=== PATIENT | male | born 1950 | race Caucasian/White ===

== ENCOUNTER 2017-05-20 04:49 | Inpatient (IN) | payer OTHER ==
[~2017-05-20] VITALS: Ht 172.7 cm; Wt 79.4 kg
--- NOTE | ~2017-05-20 | CT4 ---
[facility] A Service of [facility] RADIOLOGY TEXT RESULTS PATIENT: INDIA LUNDBERG LOCATION: [facility] : 54 UNIT #: [id number] AGE: [address]: Miguel A Mccord DO SEX: M ORDER DR: [id number] [facility] [address] [place], [place] [address] [id number] E MR#: [id number] Acc #: [id number] NAME: INDIA LUNDBERG : 1950 SEX: M STUDY DATE/TIME: 05/20/2017 7:53 UNIT: [facility] ROOM: STUDY DESCRIPTION: CT Abd and Pelv Wo Cont Attending Physician: Miguel A Mccord D.O. Ordering Physician: Jatin Fallon M.D. Primary Care Physician: Terrell Collier M.D. MEDICAL IMAGING REPORT This report is preliminary unless electronic signature is present EXAM CT of the abdomen and pelvis without contrast HISTORY Right side abdominal pain for 2 days with nausea and vomiting. COMPARISON None TECHNIQUE Axial 5.0 mm images were obtained through the abdomen and pelvis with a small amount of oral contrast only. This CT exam was performed with one or more of the following radiation dose reduction techniques: automatic exposure control, adjustment of mA and/or kV according to patient size, and iterative reconstruction. FINDINGS The lung bases are clear. The liver, spleen, pancreas, adrenal glands and kidneys are normal. The gallbladder is distended measuring up to 14.0 cm in length and it contains up to 10 small stones measuring 5.0 to 7.0 mm in diameter. They are calcified. No common bile duct stones are visible. There is no biliary distension. The aorta is normal in size and there is no adenopathy. The bowel, including the appendix, appears normal. The bladder and prostate gland are normal. The bones are unremarkable. IMPRESSION 1. The gallbladder is significantly distended and contains multiple small calcified stones. There is no wall thickening or biliary distension. 2. Normal appendix. 3. Otherwise normal study. [facility] A Service [facility] RADIOLOGY TEXT RESULTS PATIENT: INDIA LUNDBERG LOCATION: [facility] : 52 UNIT #: [id number] AGE: [address]: Miguel A Mccord DO SEX: M ORDER DR: Dictated by... Walker Burnett M.D. THIS IS AN ELECTRONICALLY VERIFIED REPORT Walker Burnett M.D. at 05/20/2017 2:51 PM Destiny TD: 05/20/2017 12:51 JOB #: [id number] MEDICAL IMAGING REPORT Page 1 of 1 COPY
--- NOTE | ~2017-05-20 | CR84 ---
[facility] A Service of [facility] RADIOLOGY TEXT RESULTS PATIENT: INDIA LUNDBERG LOCATION: [facility] - : 54 UNIT #: [id number] AGE: [address]: Danny Wilkins MD SEX: M ORDER DR: [id number] [facility] [address] [place], [place] [address] [id number] I MR#: [id number] Acc #: [id number] NAME: INDIA LUNDBERG. : 1950 SEX: M STUDY DATE/TIME: 05/21/2017 15:25 UNIT: [address] ROOM: [facility] STUDY DESCRIPTION: CR ERCP Biliary and Pancr SI Attending Physician: Danny Wilkins M.D. Ordering Physician: Emigdio Lara M.D. Primary Care Physician: Terrell Collier M.D. MEDICAL IMAGING REPORT This report is preliminary unless electronic signature is present EXAM ERCP with fluoroscopy 05/21/2017 HISTORY Common bile duct stones. Elevated liver function tests. COMPARISON CT abdomen and pelvis without contrast 05/20/2017. FINDINGS Four spot fluoroscopic images were obtained during ERCP performed by Dr. Lara. Fluoroscopy time 1 minute 39 seconds is documented by the technologist. Contrast was injected into the common bile duct, demonstrating normal caliber of the opacified portions of the intrahepatic and extrahepatic bile duct without stricture or suspicious intraluminal filling defect. According to the brief endoscopist notes, sphincterotomy was performed. Balloon sweep was performed without stone extraction. Pancreatic duct was not sought. Please refer to the endoscopists report for additional findings and recommendations. Dictated by... Alexandra Ortez M.D. THIS IS AN ELECTRONICALLY VERIFIED REPORT Alexandra Ortez M.D. at 05/22/2017 9:49 PM ARLEY/benedicto TD: 05/22/2017 06:03 JOB #: [id number] [facility] A Service [facility] RADIOLOGY TEXT RESULTS PATIENT: INDIA LUNDBERG LOCATION: [facility] 326-01 : 54 UNIT #: [id number] AGE: [address]: Danny Wilkins MD SEX: M ORDER DR: MEDICAL IMAGING REPORT Page 1 of 1 COPY
--- NOTE | ~2017-05-20 | OR ---
Unit #: [id number] #: [id number] Patient: INDIA LUNDBERG [id number] [address] [place], [place] [address] [id number] I MR#: [id number] NAME: INDIA LUNDBERG. ROOM: [facility] Date of Procedure: 05/21/2017 Admission Date: 05/20/2017 Surgeon: Emigdio Lara M.D. : 1950 Attending Physician: Danny Wilkins M.D. Primary Care Physician: Terrell Collier M.D. OPERATIVE REPORT PRIMARY CARE PHYSICIAN Terrell Proctor M.D. PREOPERATIVE DIAGNOSES The patient has presented with bilirubin of 7 on a background of chronic hepatitis C. He has been treated in a sustained viral response and "cured." He presents with right upper quadrant abdominal pain with evidence of cholelithiasis and cholecystitis. The purpose of the endoscopic retrograde cholangiopancreatography is to look for and treat any common bile ductal stones. The patient's imaging studies do not suggest any biliary ductal dilation, but he does have hyperbilirubinemia with bilirubin of 7 and elevated transaminases. PROCEDURE PERFORMED Endoscopic retrograde cholangiopancreatography and sphincterotomy. POSTOPERATIVE DIAGNOSES 1. A preliminary upper gastrointestinal endoscopy was performed, which was normal. Specifically, there were no esophageal varices nor any changes of portal hypertensive gastropathy. 2. The common bile duct was normal in appearance and caliber. After a limited sphincterotomy, the duct was swept with a 9 to 12 mm retrieval balloon at 9 and 10 mm pressures and completely normal occlusion cholangiogram was obtained. There being no ductal stones. RECOMMENDATIONS The patient is due to undergo laparoscopic cholecystectomy tomorrow. He will be on clear liquid diet until midnight today. SEDATION USED MAC. DESCRIPTION OF PROCEDURE Following detailed explanation of the potential risks and complications of an ERCP, namely perforation, bleeding, complication related to sedation, and pancreatitis, the patient was brought to GI lab and laid in the left semiprone position. Sedation using MAC was given. Initially, an upper GI endoscopy was performed which was normal. A lateral-viewing duodenoscope was then advanced through the oral cavity into the esophagus. The entire esophageal mucosa was examined and appeared normal. The scope was then advanced into the gastric cavity. Pylorus was intubated in the usual fashion. The scope was advanced in deep descending duodenum. Upon Unit #: [id number] #: [id number] Patient: INDIA LUNDBERG shortening the scope, major papilla and ampullary area was visualized en face. Using guidewire based cannulation, the common bile duct was cannulated in the first attempt. Contrast cholangiogram was obtained that showed normal caliber of the duct about 5 mm and no filling defects. A limited sphincterotomy was performed and the duct was swept with a 9 to 12 mm retrieval balloon multiple times. No stones or debris were delivered. A normal occlusion cholangiogram was demonstrated. The scope and the accessories were then withdrawn. The patient returned to the recovery area. He tolerated the procedure without any postprocedure complications. Dictated by... Trang Meraz/jannet TD: 05/21/2017 17:41 JOB #: [id number] CC: Trang Lemus Jr., M.D. OPERATIVE REPORT Page 1 of 1 X Emigdio Lara MD X PROCEDURE OPERATIVE NOTE
--- NOTE | ~2017-05-20 | CO ---
Unit #: [id number] #: [id number] Patient: INDIA LUNDBERG [id number] [address] [address] [id number] I MR#: [id number] NAME: INDIA LUNDBERG ROOM: 228 Age: 67 Sex: M Admission Date: 05/20/2017 : 1950 Attending Physician: Danny Wilkins M.D. Primary Care Physician: Terrell Collier M.D. Requesting Physician: Danny Wilkins M.D. Consultation Date: 05/23/2017 CONSULTATION REPORT REASON FOR CONSULTATION Abdominal infection and Gram negative rods. HISTORY OF PRESENT ILLNESS The patient is a 67-year-old male, with past medical history significant for multiple medical problems admitted with abdominal pain. He went for a couple of days prior to his presentation had some nausea and vomiting, no diarrhea, no cough, congestion, shortness of breath, or dizziness. On evaluation he has got cholelithiasis with gallbladder distention. He was taken to the OR and found to have gangrenous cholecystitis, the fluid from that are growing Gram negative rods, he has got a drain in place. Infectious disease consultation was requested for further evaluation and antibiotic management. PAST MEDICAL HISTORY 1. Jackson's esophagus. 2. Benign prostatic hypertrophy. 3. Alcohol abuse, 4. Opiate abuse. 5. Cognitive impairment. 6. EGD. 7. Colonoscopy. 8. Transurethral resection of prostate. 9. Left knee surgery. 10. Tonsillectomy. 11. Face surgery. SOCIAL HISTORY Noncontributory. FAMILY HISTORY Noncontributory. ALLERGIES No known drug allergies. CURRENT MEDICATIONS Two antibiotics include vancomycin. PHYSICAL EXAMINATION GENERAL: On examination she is lying in bed comfortably and in no distress. VITAL SIGNS: Temperature 97.4, T-max 100.4, pulse 88, respirations 16, blood pressure 132/80. Unit #: [id number] #: [id number] Patient: INDIA LUNDBERG HEENT: Unremarkable. CHEST: Clear to auscultation. HEART: Normal S1 and S2. ABDOMEN: Soft and mildly tender, diffusely looks like a little bit of distention, drain in the right upper quadrant in place. DIAGNOSTIC STUDIES LABORATORY: BUN 10, creatinine 0.6, total bilirubin 6.5, AST 38, ALT 62, alkaline phosphatase 82, all of them are improved. White blood count 13.1, which was 17.7 upon admission, hemoglobin 11.8, platelets 249. Urinalysis had some nitrate positive, had some pyuria and bacteruria. Urine culture is negative. Blood culture negative so far. Gallbladder fluid specimen showing 2+ Gram negative rods possibly E. coli sensitivities pending. IMAGING: CT scan of the abdomen and pelvis as noted above. Distended gallbladder with multiple gallstones. ERCP with no obstruction. ASSESSMENT 1. Acute Gram negative cholecystitis. 2. Status post laparoscopic cholecystectomy. 3. Urinary tract infection. PLAN Plan at this time, there is significant risk factors for multidrug organisms so Zosyn is appropriate empiric antibiotic treatment, plus his fever has resolved and his WBC count is improving showing signs of improvement, will followup on results of final cultures and adjust the antibodies accordingly. Further recommendations depending upon the course. Thank you for requesting us to participate in the care of this patient, we will follow this patient along with you. Dictated by... Trang Silva/alcon TD: 05/24/2017 13:29 JOB #: [id number] Unit #: [id number] #: [id number] Patient: INDIA LUNDBERG CONSULTATION REPORT Page 1 of 1 X Eladio Ha MD CONSULTATION REPORT
--- NOTE | ~2017-05-20 | CO ---
Unit #: [id number] #: [id number] Patient: INDIA LUNDBERG [id number] [address] [address] [id number] I MR#: [id number] NAME: INDIA LUNDBERG ROOM: 326 Age: 67 Sex: M Admission Date: 05/20/2017 : 1950 Attending Physician: Danny Wilkins M.D. Primary Care Physician: Terrell Collier M.D. Consultation Date: 05/20/2017 CONSULTATION REPORT REVISED REPORT BRIEF SUMMARY The patient is a 67-year-old white male, who was in normal good health up until approximately 2 days ago when he developed midepigastric abdominal pain with associated nausea and vomiting. He presented to the emergency room with these complaints. He has had a known past history for multiple medical problems including hepatitis C and respiratory problems as well as some psych issues. He is nonsmoker, nondrinker, and is retired. He has had no recent change in his weight and denies any fatty food intolerance. He has had no history for pancreatitis or peptic ulcer disease. He has been seen in the past by Dr. Lara. He has had multiple surgical procedures in the past including left knee repair, TURP, cysto, tonsillectomy, reconstruction of his face, and EGD. MEDICATIONS Mobic, Percocet, fish oil, lecithin, vitamin E, Centrum, ascorbic acid, Nexium, Aricept, Boniva, Zosyn, morphine sulfate, BuSpar, Risperdal. ALLERGIES None known. TRANSFUSION None in the past. FAMILY HISTORY Noncontributory. SOCIAL HISTORY The patient is single, nonsmoker, nondrinker. Has normal good appetite with no recent weight change as noted above. IMMUNIZATIONS Up-to-date. REVIEW OF SYSTEMS Ten systems review has been performed, which is not remarkable except for that noted in the present illness. PHYSICAL EXAMINATION VITAL SIGNS: Temperature on admission 97.8, pulse 96, respirations 17, blood pressure 189/87. GENERAL: The patient is a well-developed, well-nourished 67-year-old white male, in no acute distress. Unit #: [id number] #: [id number] Patient: INDIA LUNDBERG HEENT: Not remarkable except for noting he does have icteric sclera. NECK: Supple. CHEST: There is equal bilateral expansion with bilateral equal breath sounds. LUNGS: Clear bilaterally. HEART: Regular rhythm without murmurs or gallops. There is no evidence of cardiomegaly clinically. ABDOMEN: Soft, mildly tender in the midepigastrium without mass or organomegaly. There is no gross abdominal cyst. No guarding or rebound. Active bowel sounds present. No evidence of ascites or hernias. EXTREMITIES: Full range of motion without limitation. There is no evidence of peripheral edema. BACK: No CVA tenderness. NEUROLOGIC: Grossly intact. DIAGNOSTIC STUDIES LABORATORY RESULTS: Total bilirubin is above 6.5 with elevation of his AST, ALT, and alkaline phosphatase, although the alkaline phosphatase is not highly elevated. The rest of his labs are not remarkable. IMAGING STUDIES: CT scan revealed evidence of small stones with a distended gallbladder. IMPRESSION The patient has elevated liver function tests with cholecystitis, cholelithiasis, as well as history of hepatitis C. PLAN We will await Dr. Lara's opinion with respect of possible ERCP or MRCP and eventually he will need to be considered for laparoscopic cholecystectomy. Dictated by... Juan Pablo Balbuena Jr., MRiana. TINA/jannet TD: 05/20/2017 23:31 JOB #: [id number] CONSULTATION REPORT Page 1 of 1 X Juan Pablo Balbuena MD X CONSULTATION REPORT
--- NOTE | ~2017-05-20 | DS ---
Unit #: [id number] #: [id number] Patient: INDIA LUNDBERG [id number] [address] [place], [place] [address] [id number] I MR#: [id number] NAME: INDIA LUNDBERG. ROOM: 228 Age: 67 Sex: M Admission Date: 05/20/2017 : 1950 Discharge Date: 05/25/2017 Attending Physician: Danny Wilkins M.D. Primary Care Physician: Terrell Collier M.D. DISCHARGE SUMMARY REASON FOR ADMISSION Abdominal pain. HISTORY OF PRESENT ILLNESS/HOSPITAL COURSE Please see history and physical for complete details of initial part of hospital stay. In the emergency department the patient underwent a CT of the abdomen and pelvis which showed gallbladder distension as well as cholelithiasis. Subsequently consultation was placed to both Dr. Lara as well as to [facility]. The patient underwent an ERCP secondary to elevated bilirubin of 7. Postoperatively, after ERCP was completed his upper GI endoscopy was negative. His common bile duct was normal in appearance and caliber. The duct was swept and a completely normal. Cholangiogram was obtained. Subsequently [facility] saw and evaluated the patient. The patient ultimately underwent laparoscopic cholecystectomy on 05/22/2017. Postoperatively he has otherwise done well. He has had a routine course. His wound culture from gallbladder fossa was positive for e-coli. This prompted consultation to infectious disease services for evaluation. At the time of discharge they have recommended Augmentin 875 mg p.o. b.i.d., for which he will be given a prescription. His blood cultures this hospital admission have not yielded any acute bacterial growth. Prescriptions for pain medication have been written for by [facility] services. FINAL DISCHARGE DIAGNOSES 1. Elevated bilirubin, now resolving, at the time of discharge 2.1. 2. Cholelithiasis/acute cholecystitis, status post laparoscopic cholecystectomy. 3. E-coli from gallbladder wound/fossa. 4. Hepatitis C. 5. Jackson esophagus. 6. BPH. 7. Bipolar disorder. 8. Prior history of alcohol abuse. 9. Prior history of opiate abuse. FINAL DISCHARGE MEDICATIONS 1. Augmentin 875 mg p.o. b.i.d. times 7 days. 2. Lortab 7.5/325 mg 1 tablet p.o. q.4 h. p.r.n., #30 prescription given by [facility]. 3. Nexium 40 mg p.o. daily. Unit #: [id number] #: [id number] Patient: INDIA LUNDBERG 4. Risperidone 1 mg p.o. daily. 5. Aricept 10 mg p.o. daily. 6. Multivitamin daily. 7. Tylenol 650 mg p.o. q.6 h. p.r.n. mild pain. DISCHARGE CONDITION Stable. DISPOSITION Home. FOLLOWUP 1. Follow up with [facility], Dr. Balbuena, in 8-10 days. 2. Follow up with primary care physician in five to seven days for repeat CMP. Dictated by... Trang Apple/wen TD: 05/26/2017 10:47 JOB #: [id number] DISCHARGE SUMMARY Page 1 of 1 X Danny Wilkins MD X DISCHARGE SUMMARY
--- NOTE | ~2017-05-20 | OR ---
Unit #: [id number] #: [id number] Patient: INDIA LUNDBERG [id number] [address] [place], [place] [address] [id number] I MR#: [id number] NAME: INDIA LUNDBERG ROOM: [facility] Date of Procedure: 05/22/2017 Admission Date: 05/20/2017 Surgeon: Juan Pablo Balbuena Jr., M.D. : 1950 Attending Physician: Danny Wilkins M.D. Primary Care Physician: Terrell Collier M.D. OPERATIVE REPORT INDICATIONS FOR PROCEDURE The patient is a 67-year-old white male, admitted through the emergency room complaining of severe abdominal pain. Workup revealed evidence of distended gallbladder with small stones and elevated liver function test. He had an ERCP yesterday, which revealed no evidence of any stones in the common duct and he is brought to the operating room at this time for diagnostic laparoscopy and laparoscopic cholecystectomy. The patient understands the procedure including the risks, including that of intra-abdominal organ injury, common duct injury, biliary leak, and bleeding, and consents. PREOPERATIVE DIAGNOSES Cholecystitis with cholelithiasis. POSTOPERATIVE DIAGNOSES Gangrenous cholecystitis with a wrapped gallbladder and severe inflammation in the area of the triangle of Calot and whit hepatis. ANESTHESIA General with endotracheal intubation and 0.5% Marcaine with epinephrine locally. PROCEDURE PERFORMED Laparoscopic lysis of adhesions requiring 15 minutes with laparoscopic cholecystectomy. DESCRIPTION OF PROCEDURE The patient was positioned in supine position. After being anesthetized and intubated, he was prepped and draped in routine fashion for laparoscopic cholecystectomy. A small supraumbilical incision was made approximately 1 cm in length. This was carried down to the fascia. The fascia in the umbilicus was lifted with a towel clip, and a Veress needle introduced into the abdomen. The abdomen was then inflated with CO2 gas. A 5-mm port was introduced into the abdomen followed by the camera. There was no evidence of any injury related to introduction of the port of the Veress needle. Brief intra-abdominal exploration was carried out. The liver did not look cirrhotic, but did have some areas scarring on it. There was a wrapped up gallbladder with omental wrapping completely around it with probable perforation. It was very tense and gangrenous in appearance. The rest of the exam was not remarkable. Two 5-mm ports were placed laterally and an 11-mm port just to the right of the upper midline. The gallbladder was aspirated. Bile from the gallbladder was sent for Unit #: [id number] #: [id number] Patient: INDIA LUNDBERG and the gallbladder was then lifted. Multiple adhesions were pulled free from it with both blunt and sharp dissection. After the gallbladder was completely dissected out, dissection was carried out in the triangle of Calot where there were severe inflammatory changes. Cystic duct which was mildly dilated, was isolated, and a 12-mm port was placed, used to replace the 11-mm port and the large stapler was used to staple the cystic duct x4. It was then divided approximately a 1 cm from its junction with the common duct. Cystic artery was identified, hemoclipped x3, and divided. The gallbladder was then removed from its bed with the hook cautery using a current of 20 and basically peeled out of the gallbladder bed in most areas. After it was freed, it was placed in EndoCatch bag and brought out through the larger port site after the port site was extended along with the fascia. The port was replaced. Subhepatic space copiously irrigated with saline solution. One or two sponges were used to soak up some blood and bile that has been spilled with manipulation of the gallbladder. These were placed intra-abdominal and brought out directly. After sponge count was correct x3, a 10-mm Carlos-Correa drain was placed in the subhepatic space in routine fashion and brought out through the lateral port site. It was sutured to the skin with 2-0 silk suture. After hemostasis was noted, the ports removed. There was no evidence of any bleeding from the port sites. The fascia in the larger port site was approximated with 2 separate [id number] 0 Vicryl sutures. The wounds were irrigated and after hemostasis achieved with Bovie cautery, they were injected with 0.5% Marcaine with epinephrine. The skin edges were approximated with stainless-steel skin clips and skin stapling device. Sterile dressings were applied externally. Estimated blood loss less than 150 mL. The patient received less than 2000 mL crystalloid solution during the procedure. Sponges and instrument counts were correct x3. No drains used. No complications. The patient was taken to the recovery room with stable vital signs in satisfactory condition. Dictated by... Juan Pablo Balbuena Jr., M.D. JMB/jannet TD: 05/22/2017 16:41 JOB #: [id number] OPERATIVE REPORT Page 1 of 1 X Juan Pablo Balbuena MD X PROCEDURE OPERATIVE NOTE
--- NOTE | ~2017-05-20 | HP ---
Unit #: [id number] #: [id number] Patient: INDIA LUNDBERG [id number] [address] [address] [id number] MR#: [id number] NAME: INDIA LUNDBERG. ROOM: Age: 67 Sex: M Admission Date: 05/20/2017 : 1950 Attending Physician: Miguel A Mccord D.O. Primary Care Physician: Terrell Collier M.D. HISTORY AND PHYSICAL CHIEF COMPLAINT Abdominal pain. HISTORY OF PRESENT ILLNESS The patient is a 67-year-old male with a past medical history of hepatitis C, Jackson esophagus, BPH, bipolar disorder, alcohol abuse, and opiate abuse, who presented to the emergency department for evaluation of the above. The patient states that he has had a two-day history of right-sided abdominal pain. He describes the pain as "dull." It has been fairly constant in nature. There are no exacerbating or alleviating factors. He states that it radiates to his back. He has had chills, but no documented fever. He reports two bouts of nonbloody emesis within the past 24 hours. He denies any diarrhea, no urinary symptoms, and no cough or cold symptoms. In the emergency department, a CT of the abdomen and pelvis was done and showed gallbladder distention with cholelithiasis. Additionally, urinalysis shows findings concerning for urinary tract infection. White blood cell count was 20.1. He was given 1 liter of normal saline, as well as 4 mg of Zofran, 2 mg of morphine, and 3.375 grams of Zosyn. He is being admitted to [facility] for evaluation and further treatment. PAST MEDICAL HISTORY 1. Admission to [facility] February 19-2010, for mental inquest warrant while patient was having a manic episode. 2. Jackson esophagus. The patient has seen Dr. Lara in the past. 3. Hepatitis C. 4. Benign prostatic hypertrophy, status post transurethral resection of the prostate. 5. History of alcohol abuse per [facility] records. 6. History of opiate abuse again per [facility] records. 7. Cognitive impairment, on Aricept. PAST SURGICAL HISTORY 1. EGD August 21, 2011, showed mild prepyloric antral gastritis and evidence of Jackson esophagus in the distal esophagus. 2. Colonoscopy. 3. Transurethral resection of prostate. 4. Left knee surgery. 5. Tonsillectomy. 6. Face surgery. Unit #: [id number] #: [id number] Patient: INDIA LUNDBERG SOCIAL HISTORY The patient lives with his girlfriend. There is no tobacco or alcohol use. He denies illicit drug use. He walks without assistance. His code status is a Full Code. Per [facility] records, he has a history of alcohol abuse and opiate abuse, but the patient currently denies. FAMILY HISTORY Notable for his mother having cancer. His dad had a myocardial infarction. ALLERGIES No known allergies. HOME MEDICATIONS 1. Multivitamin daily. 2. Nexium 40 mg daily. 3. Aricept 10 mg daily. 4. Risperidone 1 mg daily. REVIEW OF SYSTEMS A complete review of systems is negative except as indicated in the History of Present Illness. The patient denies any change in his weight. PHYSICAL EXAMINATION VITAL SIGNS: Temperature is 97.8, pulse 96, respirations 17, blood pressure 189/87, and oxygen saturation is 97% on room air. GENERAL: Patient is a male who is awake and alert. HEENT: Head is atraumatic. Mucous membranes are moist. NECK: Supple. Trachea is midline. CARDIOVASCULAR: Regular rate and rhythm. LUNGS: Clear to auscultation bilaterally with no increased work of breathing. ABDOMEN: Soft. He is tender to palpation in the right upper quadrant. Bowel sounds are present in all four quadrants. EXTREMITIES: Nontender with no pedal edema. NEUROLOGIC: Patient is awake and alert. He follows commands. PSYCHIATRIC: Mood and affect are normal. Patient is cooperative. SKIN: Skin of examined areas is warm and dry. DIAGNOSTIC STUDIES LABORATORY: INR is 1.2. Comprehensive metabolic panel notable for a sodium of 132, CO2 is 18, anion gap is 14, glucose 193, AST and ALT are 197 and 188, respectively, alkaline phosphatase is 104, total bilirubin 6.9 with 3.8 direct and 3.1 indirect. Lipase is 22. Urinalysis notable for 1+ leukocyte esterase, positive nitrite, 1+ protein, and 5-10 white blood cells. Complete blood count notable for white blood cell count of 20.1. IMAGING: CT of the abdomen and pelvis shows gallbladder distention with stones within the gallbladder. ASSESSMENT The patient is a 67-year-old male with: 1. Cholelithiasis. 2. Urinary tract infection. There are no urine cultures in [facility] for review. 3. Leukocytosis. 4. Hepatitis C. 5. Jackson esophagus. Unit #: [id number] #: [id number] Patient: INDIA LUNDBERG 6. Benign prostatic hypertrophy, status post transurethral resection of prostate. 7. Bipolar disorder. 8. History of alcohol abuse. The patient currently denies. 9. History of opiate abuse. The patient denies this as well. 10. Cognitive impairment. The patient is alert and oriented x3 at the time of my evaluation. He is on Aricept. PLAN 1. Admit to intermediate level. 2. N.p.o. 3. Normal saline at 75 mL/hour. 4. Blood cultures x2. 5. Zosyn 3.375 grams IV q.6 hours pending further workup. 6. Consult Dr. Lara regarding cholelithiasis. 7. Consult [facility] regarding cholelithiasis. 8. P.r.n. morphine. 9. P.r.n. Zofran. 10. Urine culture and sensitivity on urine in the lab. 11. Repeat labs in the morning. 12. Additional workup and consultants based on above. 13. SCDs for DVT prophylaxis. 14. Regarding code status, the patient is a Full Code. 1. Dictated by Trang Lemus/tom TD: 05/20/2017 16:03 JOB #: [id number] HISTORY AND PHYSICAL Page 1 of 1 X Estee Mata MD HISTORY AND PHYSICAL
[~2017-05-20 04:49] MED LIST: ALLEGRA PO; ARICEPT PO; BONIVA150 MG PO; BUSPIRONE HCL10 MG PO; CENTRUM PO; CIPRO PO; COLACE PO; CRANBERRY; FISH OIL 1,0001 CAP PO; MILK THISTLE; MOBIC PO; MORPHINE SULFAT15 MG PO; NEXIUM PO; OXYCONTIN PO; PERCOCET10 PO; RISPERDAL0.5 MG PO; RISPERDAL2 MG PO; SAW PALMETTO; STRESS TABS; TEMAZEPAM PO; TRIGOSAMINE PO; VIT E PO; VITAMIN C PO; VITAMIN D 4001 UDTAB PO; [UNRECOGNIZED DRUG - CODE] PO; [UNRECOGNIZED DRUG - OTHER]; [UNRECOGNIZED DRUG - OTHER]
[2017-05-20 06:00] LABS: BASOPHIL% 0.1 % (0-2.5); DIFF IND YES; HEMATOCRIT 41.6 % (38.0-50.0); HEMOGLOBIN 14.3 gm/dL (13.0-16.0); LYMPHOCYTE# 0.6 X10e3 (1.0-3.5); MEAN CELL VOLUME 85.9 FL (83-96); MEAN CORPUSCULAR HEMOGLOBIN 29.5 PG (28-34); MEAN CORPUSCULAR HGB CONC 34.3 g/dL (30-36); MEAN PLATELET VOLUME 7.3 FL (6.5-11.5); MONOCYTE% 5.1 % (3.0-12.0); NEUTROPHIL# 18.5 X10e3 (1.5-7.1); NEUTROPHIL% 91.8 % (40-75); PLATELET COUNT 280 X10e3 (140-420); RED BLOOD COUNT 4.85 X10e (3.90-5.60); RED CELL DISTRIBUTION WIDTH 13.6 % (11.0-15.5); WHITE BLOOD COUNT 20.1 X10e3 (4.0-10.5)
[2017-05-20 06:02] LABS: INR 1.2; PARTIAL THROMBOPLASTIN TIME 28.5 SECONDS (23.5-31.3); PROTHROMBIN TIME (PATIENT) 12.8 SECONDS (10.0-11.7)
[2017-05-20 06:13] LABS: URINE SOURCE CLEAN CATCH
[2017-05-20 06:21] LABS: URINE APPEARANCE CLOUDY; URINE BLOOD NEG (NEG); URINE COLOR DK YELLOW; URINE GLUCOSE NEG (NEG); URINE KETONE NEG (NEG); URINE LEUKOCYTE ESTERASE 1+ (NEG); URINE NITRATE POS (NEG); URINE PROTEIN 1+ (NEG); URINE SPECIFIC GRAVITY 1.025 (1.003-1.035)
[2017-05-20 06:23] LABS: CULTURE INDICATED? YES; URINE BACTERIA AUWI NEG (NEGATIVE); URINE SQUAMOUS EPITHELIAL CELL OCC /[HPF]
[2017-05-20 06:29] LABS: ALBUMIN SERUM 4.6 g/dL (3.5-5.0); BILIRUBIN, DIRECT 3.8 mg/dL (0.0-0.2); BILIRUBIN,INDIRECT 3.1 mg/dL (0.0-0.9); BILIRUBIN,TOTAL 6.9 mg/dL (0.2-2.0); BUN/CREATININE RATIO 11.53; CALCIUM SERUM 8.9 mg/dL (8.4-10.2); CREATININE SERUM 1.3 mg/dL (0.6-1.4); GLOM FILT RATE Estimated 57.3 mL/min (>60); POTASSIUM 3.6 mmol/L (3.5-5.1)
[2017-05-20 06:42] LABS: URINE BILIRUBIN POS (NEG)
[2017-05-20 06:47] LABS: URBCS1 AUWI 0-2 /[HPF] (0-2)
[2017-05-20 06:48] LABS: URINE GRANULAR CAST 0-2 /[HPF]; URINE MUCUS PRESENT; URINE TRANSITIONAL EPI CELLS FEW /[HPF]
[2017-05-20 06:50] LABS: PLATELET ESTIMATE NORMAL (NORMAL)
[2017-05-20 06:51] LABS: TEAR DROP CELLS PRESENT
[2017-05-20] MEDS ORDERED: RISPERIDONE1 MG PO (08:53)
[2017-05-21 06:13] LABS: HEMATOCRIT 37.7 % (38.0-50.0); HEMOGLOBIN 12.8 gm/dL (13.0-16.0); MEAN CELL VOLUME 86.5 FL (83-96); MEAN CORPUSCULAR HEMOGLOBIN 29.4 PG (28-34); MEAN PLATELET VOLUME 7.4 FL (6.5-11.5); RED BLOOD COUNT 4.36 X10e (3.90-5.60); RED CELL DISTRIBUTION WIDTH 13.7 % (11.0-15.5); WHITE BLOOD COUNT 17.7 X10e3 (4.0-10.5)
[2017-05-21 06:21] LABS: INR 1.3; PROTHROMBIN TIME (PATIENT) 14.6 SECONDS (10.0-11.7)
[2017-05-21 07:18] LABS: ALBUMIN SERUM 3.1 g/dL (3.5-5.0); BUN/CREATININE RATIO 11.25; CALCIUM SERUM 7.3 mg/dL (8.4-10.2); CREATININE SERUM 0.8 mg/dL (0.6-1.4); GLOM FILT RATE Estimated 93.8 mL/min (>60); POTASSIUM 3.7 mmol/L (3.5-5.1); PROTEIN TOTAL SERUM 5.8 g/dL (6.0-8.3)
[2017-05-22 06:09] LABS: ALBUMIN SERUM 2.9 g/dL (3.5-5.0); BILIRUBIN,TOTAL 8.5 mg/dL (0.2-2.0); BUN/CREATININE RATIO 12.85; CALCIUM SERUM 8.1 mg/dL (8.4-10.2); CREATININE SERUM 0.7 mg/dL (0.6-1.4); GLOM FILT RATE Estimated 99.1 mL/min (>60); POTASSIUM 3.5 mmol/L (3.5-5.1); PROTEIN TOTAL SERUM 5.7 g/dL (6.0-8.3)
[2017-05-22 06:39] LABS: HEMATOCRIT 36.2 % (38.0-50.0); HEMOGLOBIN 12.6 gm/dL (13.0-16.0); MEAN CELL VOLUME 86.1 FL (83-96); MEAN CORPUSCULAR HEMOGLOBIN 29.9 PG (28-34); MEAN CORPUSCULAR HGB CONC 34.8 g/dL (30-36); MEAN PLATELET VOLUME 7.4 FL (6.5-11.5); RED BLOOD COUNT 4.2 X10e (3.90-5.60); RED CELL DISTRIBUTION WIDTH 13.8 % (11.0-15.5); WHITE BLOOD COUNT 17.8 X10e3 (4.0-10.5)
[2017-05-23 05:35] LABS: HEMATOCRIT 34.4 % (38.0-50.0); HEMOGLOBIN 11.8 gm/dL (13.0-16.0); MEAN CELL VOLUME 86.9 FL (83-96); MEAN CORPUSCULAR HEMOGLOBIN 29.8 PG (28-34); MEAN CORPUSCULAR HGB CONC 34.3 g/dL (30-36); MEAN PLATELET VOLUME 7.2 FL (6.5-11.5); RED BLOOD COUNT 3.96 X10e (3.90-5.60); WHITE BLOOD COUNT 13.1 X10e3 (4.0-10.5)
[2017-05-23 06:10] LABS: ALBUMIN SERUM 2.4 g/dL (3.5-5.0); BILIRUBIN,TOTAL 6.5 mg/dL (0.2-2.0); BUN/CREATININE RATIO 16.66; CALCIUM SERUM 7.8 mg/dL (8.4-10.2); CREATININE SERUM 0.6 mg/dL (0.6-1.4); GLOM FILT RATE Estimated 105.6 mL/min (>60); POTASSIUM 3.6 mmol/L (3.5-5.1); PROTEIN TOTAL SERUM 5.3 g/dL (6.0-8.3)
[2017-05-24 05:26] LABS: HEMATOCRIT 32.3 % (38.0-50.0); MEAN CELL VOLUME 87.5 FL (83-96); MEAN CORPUSCULAR HEMOGLOBIN 29.8 PG (28-34); MEAN CORPUSCULAR HGB CONC 34.1 g/dL (30-36); MEAN PLATELET VOLUME 7.4 FL (6.5-11.5); RED BLOOD COUNT 3.7 X10e (3.90-5.60); RED CELL DISTRIBUTION WIDTH 13.9 % (11.0-15.5); WHITE BLOOD COUNT 14.9 X10e3 (4.0-10.5)
[2017-05-24 06:45] LABS: ALBUMIN SERUM 2.2 g/dL (3.5-5.0); CALCIUM SERUM 7.5 mg/dL (8.4-10.2); CREATININE SERUM 0.8 mg/dL (0.6-1.4); GLOM FILT RATE Estimated 93.8 mL/min (>60); POTASSIUM 3.1 mmol/L (3.5-5.1); PROTEIN TOTAL SERUM 5.1 g/dL (6.0-8.3)
[2017-05-25 05:42] LABS: HEMATOCRIT 32.4 % (38.0-50.0); HEMOGLOBIN 10.9 gm/dL (13.0-16.0); MEAN CELL VOLUME 86.3 FL (83-96); MEAN CORPUSCULAR HEMOGLOBIN 29.1 PG (28-34); MEAN CORPUSCULAR HGB CONC 33.7 g/dL (30-36); MEAN PLATELET VOLUME 6.7 FL (6.5-11.5); RED BLOOD COUNT 3.75 X10e (3.90-5.60); RED CELL DISTRIBUTION WIDTH 13.7 % (11.0-15.5); WHITE BLOOD COUNT 14.3 X10e3 (4.0-10.5)
[2017-05-25 06:32] LABS: ALBUMIN SERUM 2.3 g/dL (3.5-5.0); BILIRUBIN,TOTAL 2.1 mg/dL (0.2-2.0); BUN/CREATININE RATIO 15.71; CALCIUM SERUM 7.7 mg/dL (8.4-10.2); CREATININE SERUM 0.7 mg/dL (0.6-1.4); GLOM FILT RATE Estimated 99.1 mL/min (>60); PROTEIN TOTAL SERUM 5.9 g/dL (6.0-8.3)
[2017-05-25 06:43] LABS: POTASSIUM 2.7 mmol/L (3.5-5.1)
[2017-05-25] MEDS ORDERED: TYL325 PO (14:46)
[2017-05-25] MEDS ORDERED: LORTAB 7.5-3251 EACH PO (14:47)
[2017-05-25] MEDS ORDERED: AUGMENTIN PO (14:47)
== END 2017-05-25 15:26 | disposition home or self-care (01) | DRG 418 ==
LOC: CED 04:49 → C3A PCU 08:30 → CEDOF 08:30 → C3A PCU 17:30 → C2A 05-23 16:15
PROVIDERS: Emergency Medicine; Family Medicine; Internal Medicine Gastroenterology; Surgery
PROC: 0F798ZZ Dilation of Common Bile Duct, Via Natural or Artificial Opening Endoscopic (ICD-10-PCS; 2017-05-21 13:30)
PROC: 0DJ08ZZ Inspection of Upper Intestinal Tract, Via Natural or Artificial Opening Endoscopic (ICD-10-PCS; 2017-05-21 13:30)
PROC: 0FN44ZZ Release Gallbladder, Percutaneous Endoscopic Approach (ICD-10-PCS; 2017-05-22)
PROC: 0FT44ZZ Resection of Gallbladder, Percutaneous Endoscopic Approach (ICD-10-PCS; principal; 2017-05-22 14:30)
DX: K80.00 Calculus of gallbladder with acute cholecystitis without obstruction (principal); N39.0 Urinary tract infection, site not specified; F11.10 Opioid abuse, uncomplicated; B19.20 Unspecified viral hepatitis C without hepatic coma; K22.70 Barrett's esophagus without dysplasia; N40.0 Benign prostatic hyperplasia without lower urinary tract symptoms; F31.9 Bipolar disorder, unspecified; F10.10 Alcohol abuse, uncomplicated; D72.829 Elevated white blood cell count, unspecified; G31.84 Mild cognitive impairment of uncertain or unknown etiology; B96.20 Unspecified Escherichia coli [E. coli] as the cause of diseases classified elsewhere
CPT/HCPCS: 36415; 74176; 74330; 80048; 80053; 80076; 81003; 82150; 82947; 83690; 85025; 85027; 85610; 85730; 87040; 87070; 87075; 87077; 87086; 87186; 87205; 88304; 96361; 96365; 96375; 99285; J0330; J1100; J1885; J2250; J2270; J2405; J2543; J3010; J3490

== ENCOUNTER 2017-05-27 08:16 | Emergency (ER) | payer OTHER ==
[~2017-05-27] VITALS: Ht 172.7 cm; Wt 79.4 kg
[~2017-05-27 08:16] MED LIST changes: +AUGMENTIN PO; +LORTAB 7.5-3251 EACH PO; +RISPERIDONE1 MG PO; +TYL325 PO
[2017-05-27 08:45] LABS: URINE SOURCE CLEAN CATCH
[2017-05-27 08:52] LABS: URINE APPEARANCE CLEAR; URINE BILIRUBIN NEG (NEG); URINE BLOOD NEG (NEG); URINE COLOR YELLOW; URINE GLUCOSE NEG (NEG); URINE KETONE NEG (NEG); URINE LEUKOCYTE ESTERASE NEG (NEG); URINE NITRATE NEG (NEG); URINE PROTEIN NEG (NEG); URINE SPECIFIC GRAVITY 1.017 (1.003-1.035)
[2017-05-27 09:05] LABS: CULTURE INDICATED? NO
[2017-05-27 09:18] LABS: BASOPHIL% 0.2 % (0-2.5); EOSINOPHIL# 0.2 X10e3 (0-0.7); EOSINOPHIL% 1.5 % (0.0-7.0); HEMATOCRIT 31.6 % (38.0-50.0); HEMOGLOBIN 10.8 gm/dL (13.0-16.0); LYMPHOCYTE# 1.3 X10e3 (1.0-3.5); LYMPHOCYTE% 9.5 % (17.0-45.0); MEAN CELL VOLUME 85.3 FL (83-96); MEAN CORPUSCULAR HEMOGLOBIN 29.3 PG (28-34); MEAN CORPUSCULAR HGB CONC 34.3 g/dL (30-36); MEAN PLATELET VOLUME 6.9 FL (6.5-11.5); MONOCYTE# 1.1 X10e3 (0-1.0); NEUTROPHIL# 10.9 X10e3 (1.5-7.1); NEUTROPHIL% 80.8 % (40-75); PLATELET COUNT 361 X10e3 (140-420); RED BLOOD COUNT 3.71 X10e (3.90-5.60); RED CELL DISTRIBUTION WIDTH 13.9 % (11.0-15.5); WHITE BLOOD COUNT 13.5 X10e3 (4.0-10.5)
[2017-05-27 09:19] LABS: DIFF IND NO
[2017-05-27 10:54] LABS: ALBUMIN SERUM 2.4 g/dL (3.5-5.0); BILIRUBIN,TOTAL 1.8 mg/dL (0.2-2.0); BUN/CREATININE RATIO 11.42; CALCIUM SERUM 7.7 mg/dL (8.4-10.2); CREATININE SERUM 0.7 mg/dL (0.6-1.4); GLOM FILT RATE Estimated 99.1 mL/min (>60); PROTEIN TOTAL SERUM 6.2 g/dL (6.0-8.3)
[2017-05-27 11:02] LABS: POTASSIUM 2.9 mmol/L (3.5-5.1)
== END 2017-05-27 12:06 | disposition home or self-care (01) ==
LOC: CED 08:16
PROVIDERS: Physician Assistant Medical
DX: E87.6 Hypokalemia (principal); R19.7 Diarrhea, unspecified; K21.9 Gastro-esophageal reflux disease without esophagitis; Z90.49 Acquired absence of other specified parts of digestive tract; Z79.899 Other long term (current) drug therapy
CPT/HCPCS: 36415; 80053; 81003; 85025; 96360; 99284